=== PATIENT | male | born 1945 | race Caucasian/White ===

== ENCOUNTER 2020-09-25 18:09 | Emergency (ER) | payer MEDICARE ==
[~2020-09-25] VITALS: Ht 172.7 cm; Wt 74.9 kg
[~2020-09-25 18:09] MED LIST: ASPI-1026 PO
--- NOTE | 2020-09-25 18:26 | NUR ---
CALLED PATIENT X1 WASN'T IN LOBBY
--- NOTE | 2020-09-25 19:30 | NUR ---
pt back to rn room at this time. pt came into ed this evening due to catheter falling out, states he was able to urinate by himself after catalan fell out. pt denies pain. bed in lowest, rails engaged, call light on lap, tm.
[2020-09-25 20:17] VITALS: BP 138/74
--- NOTE | 2020-09-25 20:32 | NUR ---
Patient given discharge instructions and they have confirmed that they understand the instructions. Patient ambulatory with steady gait. NAD, DENIES ADDITIONAL NEEDS OR QUESTIONS, VSS ON DC, NO PERSONAL BELONGINGS LEFT IN ROOM AFTER DC.
== END 2020-09-25 20:34 | disposition home or self-care (01) ==
LOC: ED 19:12
DX: Z46.6 Encounter for fitting and adjustment of urinary device (principal)
CPT/HCPCS: 99281